=== PATIENT | female | born 1935 | race Caucasian/White ===

== ENCOUNTER 2023-08-13 08:56 | Inpatient (IN) | payer OTHER, SELFPAY ==
[2023-08-13] VITALS (23 sets, daily range): BP systolic 74–160; BP diastolic 54–102; BMI 30.6
[2023-08-13 04:11] LABS: % Basophils 0.4 % (0-2); % Eosinophils 1.1 % (0-6); % Immature Granulocytes 0.2 % (0-0.5); % Monocytes 5.3 % (1.7-9.3); Absolute Eosinophils 0.1 10^3/uL (0-0.7); Absolute Lymphocytes 1.8 10^3/uL (1.2-3.4); Absolute Monocytes 0.5 10^3/uL (0.1-0.6); Absolute Neutrophils 6.9 10^3/uL (1.4-6.5); Mean Corp Hgb Conc. 35.6 g/dL (33.0-37.0); Mean Corpuscular Volume 78.7 fL (81.0-99.0); Mean Platelet Volume 10.5 fL (7.4-10.4); Nucleated Red Blood Cells % 0 %; Platelet Count 276 10^3/uL (130-400); Red Blood Cell Count 5.72 10^6/uL (4.20-5.40); Red Cell Dist. Width 13.2 % (11.5-14.5); White Blood Cell Count 9.4 10^3/uL (4.8-10.8)
--- NOTE | 2023-08-13 04:20 | ED.GENMED ---
History of Present Illness
General
Chief Complaint: Chest Pain
Source: patient and family
Time Seen by Provider: 08/13/23 04:02
Travel History
Have you had any contact with someone who has COVID-19?: No
Do you have any symptoms of coronavirus? Fever > 100 degrees, chills, cough, shortness of breath, sore throat, loss of taste or smell, muscle aches, or headache?: No
History of Present Illness
History of Present Illness:
88-year-old female presents to the emergency room after having chest pain that began at about 2:30 AM. Patient states the pain was severe. She is dizzy. Patient has a extensive cardiac history. Daughter gave the patient a sublingual nitro which
may be did help some. However she does continue to have pain. Patient was recently hospitalized here at [facility] for heart failure.
Past History
Past History
ED Past Medical History: Arrthythmia, CHF and HTN
Social History
Tobacco: Non-smoker
Alcohol: None
Phy Exam
Physical Exam
Physical Exam:
General: Awake, Alert, Oriented X3. Appears mildly uncomfortable
Vitals: Mildly hypertensive
Head: Atraumatic
Eyes: Pupils equal, EOMI
Throat: Airway intact, no exudates
Neck: Trachea midline
Lungs: Clear and equal b/l
Heart: Regular rate, no murmurs
Abd: Soft, Nontender, No pulsatile mass
Neuro: Nonfocal
Skin: Warm, dry, no rash
Extremities: pulses equal b/l, no edema
Scores
Heart Score for Chest Pain Patients
STEMI patient?: No
History: Moderately Suspicious
ECG: Nonspecific Repolarization
Age: >/= 65 years
Risk Factors: >/= 3 Risk Factors or History of CAD
Troponin: >1 - <3 x Normal Limit
Heart Score for Chest Pain Patients: 7
Heart Score Risk: 72.7 % MACE over next 6 weeks
Course
Orders/Labs/Results
Orders:
Orders
08/13/23 03:06
Electrocardiogram (*1) Urgent
Reason for Study: Other
Other Reason for Exam: Respiratory Distress
Cardiac Monitoring- Treatment ONCE
EKG- Treatment ONCE
IV Insert/Care/Rem.- Treatment PRN
CR Chest - 2 Views Urgent
Comment:
Reason For Exam: respiratory distress
O2 Therapy [RESP] Urgent
Titrate/Wean O2 to maintain O2 sat greater than (%): 93
Special Instructions: TO MAINTAIN CONTINUOUS O2 SATS >/= 93%
Pulse Ox/cont/shift [RESP] Urgent
Quantity: 1
Special Instructions: continuous pulse ox
08/13/23 03:42
Complete Blood Count/With Diff Urgent
Comprehensive Metabolic Panel Urgent
NT-proBNP Urgent
Troponin I Urgent
08/13/23 05:33
Acetaminophen [Tylenol] 1,000 mg PO NOW STA
Nitroglycerin Sublingual [Nitrostat (Sublingual)] 0.4 mg SL NOW STA
08/13/23 06:16
Troponin I Urgent
08/13/23 08:40
POTASSIUM PHOSPHATE 1mEq=0.7mM [Potassium Phosphate] 40 meq 0.9% Sodium Chloride 250 ml [Nss] 250 ml IV NOW
08/13/23 08:48
Admit/Transfer Patient As Directed
Co-Sign Provider:
Level of Care: Inpatient admission
Assign to:: IVU
Physician / Group: Marquis Do - hospitalists
Diagnosis: chest pain
Reason for Hospitalization: chest pain, trop trends, cath Tuesday
Expected length of stay greater than two midnights?: Yes
ELOS- Estimated Length of Stay in days: 3
I certify the patient meets the requirements for IP care: Yes
08/13/23 11:27
Sequential Compression Device [Pneumatic Compression Sleeves] As Directed
Type: Knee high
DX Deep Vein Thrombosis Video Routine
Abnormal Lab Results
08/13/23
03:42
RBC 5.72 H 10^6/uL
(4.20-5.40)
MCV 78.7 L fL
(81.0-99.0)
MPV 10.5 H fL
(7.4-10.4)
Absolute Neuts (auto) 6.9 H 10^3/uL
(1.4-6.5)
Lymphocytes % 19.0 L %
(20.5-51.1)
Sodium 134 L mmol/L
(135-145)
Potassium 2.9 L mmol/L
(3.5-5.1)
Chloride 92 L mmol/L
(98-107)
BUN 42 H mg/dl
(7-17)
Creatinine 1.8 H mg/dL
(0.6-1.0)
Glucose 172 H mg/dl
(70-99)
Troponin I 0.035 H* ng/ml
08/13/23 03:42
08/13/23 03:42
Vital Signs
Initial and Last Documented VS:
Initial Vital Signs
Temp Pulse Resp Pulse Ox
98 F 92 28 98
08/13/23 03:09 08/13/23 03:09 08/13/23 03:09 08/13/23 03:09
Last Documented Vital Signs
Temp Pulse Resp BP Pulse Ox
98.1 F 73 16 145/91 98
08/15/23 12:43 08/15/23 13:30 08/15/23 12:43 08/15/23 13:30 08/15/23 12:43
MDM/Problems Addressed
Differential Diagnosis Includes:
acs, a fib, anemia
MDM/Problems Addressed:
Patient presents with chest pain. She presented with A-fib throughout ventricular response. First troponin was very mildly elevated at point 035. Second troponin essentially unchanged at point 033 but certainly not rising. Patient will be
evaluated by cardiology first thing in the morning. Disposition per them
Chronic conditions affecting care: HTN, CAD and Arrhythmia
*Radiology
Radiology exam reviewed: preliminary read by ED provider (Chest x-ray reviewed by me, no significant change)
*Pulse Oximetry
Patient hypoxic: no
*EKG
Interpreted by ED Provider?: Yes
Interpretation: normal
Heart Rate: 92
Rate: normal
Rhythm: atrial flutter
Ischemia: ST depression (Laterally)
*Critical Care Note
Total Time (30-74mins, 75-104mins- exclusive of procedures): Not Applicable
ED Attending Note
-
Portions of this chart may have been created with voice recognition software.� Occasional wrong word or��sound alike� substitutions may have occurred due to the inherent limitations of voice recognition software.
Discharge Plan
Departure
Patient Disposition: Admit
Date of Disposition: 08/13/23
Time of Disposition: 08:28
Presentation/result/management discussed w/ accepting MD/DO: Hospitalist
Discharge Problem:
Elevated troponin
Interventions
Interventions:
*Risk Screen - Suicide Last Done: 08/13/23 14:57
ED- Fall Risk Assessment Last Done: 08/13/23 10:20
*ED COVID-19 Vaccine History Last Done: 08/13/23 14:48
*Nursing Disposition Last Done: 08/13/23 11:38
ED- Cardiac Assessment Last Done: 08/13/23 10:20
Discharge Date and Time
Discharge Date/Time: 08/13/23 11:39
[2023-08-13 04:40] LABS: ALT (SGPT) 20 U/L (0-35); AST (SGOT) 28 U/L (14-36); Alkaline Phosphatase 89 U/L (38-126); Blood Urea Nitrogen 42 mg/dl (7-17); Calcium 9.9 mg/dl (8.4-10.2); Carbon Dioxide 27 mmol/L (22-30); Chloride 92 mmol/L (98-107); Glucose 172 mg/dl (70-99); Potassium 2.9 mmol/L (3.5-5.1); Sodium 134 mmol/L (135-145); Total Bilirubin 0.9 mg/dl (0.2-1.3); Total Protein 6.7 g/dl (6.3-8.2)
[2023-08-13 04:49] LABS: NT-proBNP 2270 pg/ml; Troponin I 0.035 ng/ml
[2023-08-13] MEDS: TYLENOL 1000 MG PO (05:44)
[2023-08-13] MEDS: NITROSTAT (SUBLINGUAL) 0.400000000000000022 MG SL (05:45)
[2023-08-13 06:53] LABS: Troponin I 0.033 ng/ml
--- NOTE | 2023-08-13 07:34 | CON.CAR ---
Addendum entered and electronically signed by Niranjan Mosquera MD 08/13/23 10:52:
Patient seen and examined
Agree with DEVIN Galvez's note and assessment
Agree with DEVIN Galvez's plan
Translation performed by the patient's daughter who is a medical technologist microbiology Norm
She has had ongoing issues with symptomatic atrial fibrillation as well as chest pressure associated with atrial fibrillation. She had a recent round of cardiac testing through Dr. Jolly including echocardiogram with normal ejection fraction
and stress testing without significant ischemia as noted. She has renal insufficiency creatinine 1.8 and we will perform nephrology consultation in preparation for left heart catheterization.
Examination:
Telemetry notes atrial fibrillation and atypical atrial flutter
Heart rates are relatively controlled
Nonfocal neurologically
Alert and oriented 3
Cor is irregularly irregular
Abdomen soft nontender positive bowel sounds
1+ extremity edema
Family Physician:� Dr. Padma Carranza, [place], [place]
[employer] Intermediary: Dr. Jolly, Dr. Kushal Carlos of [facility]� [phone].� She also has multiple cardiologists in [place]
Impression:
Presented back to ER 08/13/2023 with chest pain, SOB.
CORWIN
Hypokalemia
Acute on chronic heart failure, proBNP 2270
Atrial flutter
Abnormal troponin, peaked 0.035
Recent admission at 07/21/2023 - 07/29/2023 with CHF, CORWIN
Recent admission at 07/30/2023 - 08/04/2023 with CHF, CORWIN
Chronic HFpEF
Paroxysmal Atrial fibrillation/flutter
s/p ablation 2021 in [place]
s/p CV 07/29/2023hronic anticoagulation with Eliquis
CKD
Known lung nodule
HTN
HLD
GERD
h/o tubal ligation and cyst removal
Aspirin allergy
Rt hip replacement
Lexiscan nuclear stress test 07/24/2023:�Preliminary report minimal anteroapical reversibility which resolves with proning consistent with soft tissue attenuation, no reversible ischemia.� EF 62%
Echo 12/13/2018: EF 55 to 60%, mild AI, TR, PAP 39 mmHg
Echo 07/22/2023: EF 55-60%, Stage II diastolic dysfunction. Mild MR, mild TR w/ PAP 56 mmHg
Plan:
Patient is an 88-year-old female who is visiting from [place].� She has past medical history significant for heart failure with preserved ejection fraction, paroxysmal atrial fibrillation status post ablation in 2021, recent cardioversion,
anticoagulation on Eliquis, hypertension, hyperlipidemia, type 2 diabetes, GERD, chronic kidney disease, DJD who presents to emergency department 08/13/2023 with acute onset of severe chest pain waking her from sleep.� Patient had 2 recent
hospitalizations at [facility] and was hospitalized from 07/21/2023 to 08/04/2023 with CP, SOB, heart failure exacerbation, CORWIN and symptomatic atrial fibrillation.� She was seen in outpatient cardiology office 08/11/2023 and was found to be
back in atrial fibrillation/flutter.� Plan was to schedule outpatient cardioversion.� However, patient awoke at 2 AM with chest pain and dizziness.� Her daughter gave her a nitroglycerin with minimal improvement however she continued to have pain
and presented back to emergency department.� EKG demonstrated atrial flutter with reasonably controlled ventricular response.� There was ST T wave abnormality in inferior and anterolateral leads.� Troponin 0.035 then trended downward.� Potassium
2.9, creatinine 1.8, proBNP 2270.
-Presents 08/13/2023 with severe chest pain.� EKG showed atypical atrial flutter with ST-T wave abnormality in inferior and anterolateral leads.
-Abnormal troponin, peaked at 0.035.� Patient has had several admissions with similar complaints over the last month.� She did undergo a Lexiscan nuclear stress test 07/24/2023 which showed minimal anteroapical reversibility which improved with
proning.� However given this is her third admission with complaints of chest pain and SOB would recommend patient undergo right and left heart catheterization.� I suspect much of her cardiac symptoms are related to her atrial arrhythmias and
pursuing treatment for her atrial arrhythmias makes the most sense in the near and intermediate term. As she has failed cardioversion on amiodarone we will continue amiodarone for rate control and I suspect she would benefit from a second attempt
at AF ablation which we are happy to perform here. Her prior AF ablation was performed in [place] and we will attempt to obtain those records. This ablation be performed as an outpatient when she is optimized and not as an inpatient currently.
-Hold Eliquis in anticipation of catheterization 08/15/2023. We will switch to heparin over the weekend in anticipation of left heart catheterization if renal function remained stable. We would like to make sure that she has no today to coronary
artery disease before pursuing outpatient arrhythmia ablation. I had a long discussion with the daughter who translated for her mother regarding risk benefits and treatment alternatives with repeat PVI.
-Bridge with heparin while off anticoagulation due to recent cardioversion 07/29/2023 and ongoing atrial flutter
-Of note patient has aspirin allergy with angioedema
-ProBNP elevated at 2270.� However, weight is less then was previously and creatinine 1.8.� Would hold on Lasix given elevated renal function and hypokalemia. Defer to nephrology regarding recommendations in terms of potassium repletion and diuretic
-K+ 2.9 getting repleted w/ oral supplement and K-rider
-Given elevated creatinine and need for cardiac catheterization would consult nephrology
-Follow renal function closely.
-Follow daily weights, I&Os.
-Continue metoprolol. Valsartan stopped during prior admission due to renal insufficiency. No SGLT2 inhibitor due to cost.
-Remains atrial flutter per review of EKG. She is s/p cardioversion 07/29/2023 and was back in atrial flutter at [facility] 08/11/23. Continue rate control for now with Toprol and Amiodarone.
-Consider doubling Amiodarone to 200 mg BID and follow QT closely
-Consider evaluation for outpatient repeat ablation
-Previously on flecainide but this was stopped 07/24/2023 due to HF
-Echo with preserved EF and mild MR 07/22/2023. No need to repeat.
-Continue Amlodipine and Toprol for HTN. PRN hydralazine
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 Visits this area with her daughter 1-2 times a year.�
Original Note:
Consultation
Consultation Request
Date/Time Consultation Requested: 08/13/2023
Date/Time Consultation Performed: 08/13/2023
Requesting Provider: Dr. Hartley
Performing Provider: Diana Galvez PA-C for Dr. Mosquera
Reason for Consultation: Chest pain, atrial fibrillation
Medical History
-
History of Present Illness:
Patient is an 88-year-old female who is visiting from [place]. She has past medical history significant for heart failure with preserved ejection fraction, paroxysmal atrial fibrillation status post ablation in 2021, recent cardioversion,
anticoagulation on Eliquis, hypertension, hyperlipidemia, type 2 diabetes, GERD, chronic kidney disease, DJD who presents to emergency department 08/13/2023 with acute onset of severe chest pain waking her from sleep. Patient had 2 recent
hospitalizations at [facility] and was hospitalized from 07/21/2023 to 08/04/2023 with heart failure exacerbation, CORWIN and symptomatic atrial fibrillation. She was seen in outpatient cardiology office 08/11/2023 and was found to be back in
atrial fibrillation/flutter. Plan was to schedule outpatient cardioversion. However, patient awoke at 2 AM with chest pain and dizziness. Her daughter gave her a nitroglycerin with minimal improvement however she continued to have pain and
presented back to emergency department. EKG demonstrated atrial flutter with reasonably controlled ventricular response. There was ST T wave abnormality in inferior and anterolateral leads. Troponin 0.035 then trended downward. Potassium 2.9,
creatinine 1.8, proBNP 2270.
Past medical history:
Chronic HFpEF
Paroxysmal Atrial fibrillation/flutter
s/p ablation 2021 in [place]
s/p CV 07/29/2023
Chronic anticoagulation with Eliquis
CKD
Known lung nodule
HTN
HLD
GERD
h/o tubal ligation and cyst removal
Aspirin allergy
Rt hip replacement
Past Medical History
Past Medical History: Other (See HPI)
Past Surgical History: Appendectomy, Cardiac (Cardioversions, atrial fibrillation in [facility] in 2021), Orthopedic (Right hip replacement) and Other (Tubal ligation, eye surgery)
Social History
Tobacco: Non-Smoker
Alcohol: None
Drug: None
Personal:
Living: With Family (Lives in [place] but spends time in this area with her daughter and also in [facility] with her son)
Family History
Family History: CAD and Diabetes
Allergies / Home Medications
Allergy/AdvReac Type Severity Reaction Status Date / Time
aspirin Allergy Swelling Verified 08/13/23 03:09
Medication Instructions Recorded Confirmed Type
omeprazole 40 mg capsule,delayed 40 mg PO DAILY Gastrointestinal 12/12/18 08/13/23 History
release Issue
Glucosamine 1 tab PO DAILY Supplement 07/21/23 08/13/23 History
multivitamin 1 tab PO DAILY Supplement 07/21/23 08/13/23 History
zinc 1 tab PO DAILY Supplement 07/21/23 08/13/23 History
amiodarone 200 mg tablet (Pacerone) 200 mg PO DAILY #30 tabs 07/29/23 08/13/23 Rx
acetaminophen 500 mg tablet 500 mg PO TIDPRN PRN mild pain 07/30/23 08/13/23 History
(Tylenol Extra Strength)
diclofenac sodium 1 applic topical BIDPRN PRN 07/30/23 08/13/23 History
arthritis
ketotifen fumarate 0.025 % (0.035 1 drp BOTH EYES DAILYPRN PRN itchy 07/30/23 08/13/23 History
%) eye drops eyes
amlodipine 10 mg tablet 10 mg PO DAILY #30 tabs 08/05/23 08/13/23 Rx
apixaban 2.5 mg tablet (Eliquis) 2.5 mg PO BID #60 tabs 08/05/23 08/13/23 Rx
furosemide 20 mg tablet (Lasix) 20 mg PO DAILY Fluid 08/05/23 08/13/23 Rx
Retention/Swelling #30 tabs
metoprolol succinate 25 mg 25 mg PO DAILY Blood Pressure #30 08/05/23 08/13/23 Rx
tablet,extended release 24 hr tabs
nitroglycerin 0.4 mg sublingual 0.4 mg sublingual [id number] PRN 08/05/23 08/13/23 Rx
tablet chest pain #30 tabs
simvastatin 20 mg tablet 20 mg PO QPM High Cholesterol #30 08/05/23 08/13/23 Rx
tabs
Review of Systems
-
History Source: Patient and Family
All other systems: Negative unless noted
Physical Exam
Vital Signs
Temp Pulse Resp BP Pulse Ox
98 F 78 15 142/91 97
08/13/23 03:09 08/13/23 06:45 08/13/23 06:45 08/13/23 06:30 08/13/23 06:45
GEN: No distress, awake, Ox3
HEENT: supple, anicteric, mmm
LUNGS: CTA, no wheezes/rales
CV: Reg, S1/S2, no murmur, rub or gallop
ABD: soft, BS+, NT/ND
EXT: No edema, clubbing or cyanosis
NEURO: Gross non-focal
SKIN: No rash, warm, dry, pink
Lab Results
08/13/23 03:42
08/13/23 03:42
Troponin I 0.033 ng/ml 08/13/23 06:16
[id number] Pept 2270 pg/ml 08/13/23 03:42
Impression / Plan
-
Family Physician:� Dr. Padma Carranza [place], [place]
[employer] Intermediary: Dr. Jolly, Dr. Kushal Carlos of [facility]� [phone].� She also has multiple cardiologists in [place]
Impression:
Presented back to ER 08/13/2023 with chest pain, SOB.
CORWIN
Hypokalemia
Acute on chronic heart failure, proBNP 2270
Atrial flutter
Abnormal troponin, peaked 0.035
Recent admission at 07/21/2023 - 07/29/2023 with CHF, CORWIN
Recent admission at 07/30/2023 - 08/04/2023 with CHF, CORWIN
Chronic HFpEF
Paroxysmal Atrial fibrillation/flutter
s/p ablation 2021 in [place]
s/p CV 07/29/2023
Chronic anticoagulation with Eliquis
CKD
Known lung nodule
HTN
HLD
GERD
h/o tubal ligation and cyst removal
Aspirin allergy
Rt hip replacement
Lexiscan nuclear stress test 07/24/2023:�Preliminary report minimal anteroapical reversibility which resolves with proning consistent with soft tissue attenuation, no reversible ischemia.� EF 62%
Echo 12/13/2018: EF 55 to 60%, mild AI, TR, PAP 39 mmHg
Echo 07/22/2023: EF 55-60%, Stage II diastolic dysfunction. Mild MR, mild TR w/ PAP 56 mmHg
Plan:
Patient is an 88-year-old female who is visiting from [place]. She has past medical history significant for heart failure with preserved ejection fraction, paroxysmal atrial fibrillation status post ablation in 2021, recent cardioversion,
anticoagulation on Eliquis, hypertension, hyperlipidemia, type 2 diabetes, GERD, chronic kidney disease, DJD who presents to emergency department 08/13/2023 with acute onset of severe chest pain waking her from sleep. Patient had 2 recent
hospitalizations at [facility] and was hospitalized from 07/21/2023 to 08/04/2023 with CP, SOB, heart failure exacerbation, CORWIN and symptomatic atrial fibrillation. She was seen in outpatient cardiology office 08/11/2023 and was found to be
back in atrial fibrillation/flutter. Plan was to schedule outpatient cardioversion. However, patient awoke at 2 AM with chest pain and dizziness. Her daughter gave her a nitroglycerin with minimal improvement however she continued to have pain
and presented back to emergency department. EKG demonstrated atrial flutter with reasonably controlled ventricular response. There was ST T wave abnormality in inferior and anterolateral leads. Troponin 0.035 then trended downward. Potassium
2.9, creatinine 1.8, proBNP 2270.
-Presents 08/13/2023 with severe chest pain. EKG showed atrial flutter with ST-T wave abnormality in inferior and anterolateral leads.
-Abnormal troponin, peaked at 0.035. Patient has had several admissions with similar complaints over the last month. She did undergo a Lexiscan nuclear stress test 07/24/2023 which showed minimal anteroapical reversibility which improved with
proning. However given this is her third admission with complaints of chest pain and SOB would recommend patient undergo right and left heart catheterization.
-Hold Eliquis in anticipation of catheterization 08/15/2023
-Bridge with heparin while off anticoagulation due to recent cardioversion 07/29/2023 and ongoing atrial flutter
-Of note patient has aspirin allergy with angioedema
-ProBNP elevated at 2270. However, weight is less then was previously and creatinine 1.8. Would hold on Lasix given elevated renal function and hypokalemia.
-K+ 2.9 getting repleted w/ oral supplement and K-rider
-Given elevated creatinine and need for cardiac catheterization would consult nephrology
-Follow renal function closely.
-Follow daily weights, I&Os.
-Continue metoprolol. Valsartan stopped during prior admission due to renal insufficiency. No SGLT2 inhibitor due to cost.
-Remains atrial flutter per review of EKG. She is s/p cardioversion 07/29/2023 and was back in atrial flutter at OV 08/11/23. Continue rate control for now with Toprol and Amiodarone.
-Consider doubling Amiodarone to 200 mg BID and follow QT closely
-Consider evaluation for outpatient repeat ablation
-Previously on flecainide but this was stopped 07/24/2023 due to HF
-Echo with preserved EF and mild MR 07/22/2023. No need to repeat.
-Continue Amlodipine and Toprol for HTN. PRN hydralazine
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 Visits this area with her daughter 1-2 times a year.�
Data Reviewed
-
EKG: Report Reviewed by me, Discussed with Physician, Discussed with Patient and Discussed with Family
Labs: Labs Reviewed by me, Discussed with Physician, Discussed with Patient and Discussed with Family
Old Records: Reviewed
[2023-08-13] MEDS: POTASSIUM PHOSPHATE 259.090899999999976 MEQ IV (10:02)
--- NOTE | 2023-08-13 10:35 | HPS.HSE ---
Family Physician
-
Family Physician: NOT KNOW UNKNOWN - PT DOES
Chief Complaint
-
chest pain
History of Present Illness
88 y/o F visiting from [place]. PMH of HFpEF, Parox AFib hx of ablation with recent DCCV, on Eliquis, HTN, HLD, Type 2 DM, CKD presents to ER for acute chest pain waking her up. She reports chest pain is severe and centrally related. She was
lightheaded. Her daughter gave her nitro with minimal relief and patient was brought to ER. No radiation. No SOB, no fever/chills. No GI complaints. Recent hospitalizations last month for CHF, CORWIN and Afib
Medical History
Past Medical History
Past Medical History: Reports Other (Chronic HFpEF Paroxysmal Atrial fibrillation/flutter s/p ablation 2021 in [place] s/p CV 07/29/2023 Chronic anticoagulation with Eliquis CKD Known lung nodule HTN HLD GERD h/o tubal ligation and cyst removal Aspirin
allergy Rt hip replacement)
Past Surgical History: Reports Other (Appendectomy, Cardiac (Cardioversions, atrial fibrillation in [facility] in 2021), Orthopedic (Right hip replacement) and Other (Tubal ligation, eye surgery))
Social History
Tobacco: Non-smoker
Alcohol: None
Drug: None
Personal:
Living: With Family
Family History
Family History: Not pertinent
Allergies / Home Medications
Allergies reflects when Allergies were last updated in [facility].
Home Medications with original date entered in [facility]
Allergy/Medication List:
Allergies
Allergy/AdvReac Type Severity Reaction Status Date / Time
aspirin Allergy Swelling Verified 08/13/23 03:09
Home Medications
omeprazole 40 mg capsule,delayed release 40 mg PO DAILY Gastrointestinal Issue 12/12/18
Glucosamine 1 tab PO DAILY Supplement 07/21/23
multivitamin 1 tab PO DAILY Supplement 07/21/23
zinc 1 tab PO DAILY Supplement 07/21/23
amiodarone 200 mg tablet (Pacerone) 200 mg PO DAILY #30 tabs 07/29/23
acetaminophen 500 mg tablet (Tylenol Extra Strength) 500 mg PO TIDPRN PRN mild pain 07/30/23
diclofenac sodium 1 applic topical BIDPRN PRN arthritis 07/30/23
ketotifen fumarate 0.025 % (0.035 %) eye drops 1 drp BOTH EYES DAILYPRN PRN itchy eyes 07/30/23
amlodipine 10 mg tablet 10 mg PO DAILY #30 tabs 08/05/23
apixaban 2.5 mg tablet (Eliquis) 2.5 mg PO BID #60 tabs 08/05/23
furosemide 20 mg tablet (Lasix) 20 mg PO DAILY Fluid Retention/Swelling #30 tabs 08/05/23
metoprolol succinate 25 mg tablet,extended release 24 hr 25 mg PO DAILY Blood Pressure #30 tabs 08/05/23
nitroglycerin 0.4 mg sublingual tablet 0.4 mg sublingual [id number] PRN chest pain #30 tabs 08/05/23
simvastatin 20 mg tablet 20 mg PO QPM High Cholesterol #30 tabs 08/05/23
Review of Systems
-
A 12 point ROS was completed and negative except as noted: Yes
Physical Exam
Vital Signs
Vital Signs
Temp Pulse Resp BP Pulse Ox
98 F 76 23 139/93 96
08/13/23 03:09 08/13/23 10:30 08/13/23 10:30 08/13/23 10:00 08/13/23 10:30
Physical Exam
General: Well Developed and Well Nourished
HEENT: NormoCephalic and Anicteric
Respiratory: No Wheezes or Rales
Cardiac: S1/S2 and Regular Rhythm
GI: Soft
Neuro: AO x 3
Psych: Calm
Laboratory Results
-
08/13/23 03:42
08/13/23 03:42
Laboratory Results
Total Bilirubin 0.9 mg/dl (0.2-1.3) 08/13/23 03:42
AST 28 U/L (14-36) 08/13/23 03:42
ALT 20 U/L (0-35) 08/13/23 03:42
Alkaline Phosphatase 89 U/L (38-126) 08/13/23 03:42
Troponin I 0.033 ng/ml 08/13/23 06:16
Data Reviewed
-
Lab Data: Labs Reviewed by me, Discussed with Patient and Discussed with Family
Impression/Plan
-
Assessment:
Acute chest pain, likely anginal
Troponin elevation, unclear if non-OK vs related to acute CHF vs ischemic origin
- EKG showed atrial flutter with ST-T wave abnormality in inferior and anterolateral leads.
- minimal improvement with Nitro
- IVU admit
- DCA cards consulted
- recent Lexiscan nuclear stress test 07/24/2023 showed minimal anteroapical reversibility which improved with proning
- for RHC/LHC Tuesday
- continue BB
- noted ASA allergy
CKD stage 3b
- Renal consult for pre-cath optimization
Hypokalemia
- replete K+ in ER
- follow BMP
Acute on chronic heart failure, proBNP 2270
- hold Lasix for now
- Follow daily weights, I&Os.
Paroxysmal Atrial fibrillation/flutter
- s/p ablation and recent Cardioversion
- continue BB/Amiodarone
- hold Eliquis for cath; bridge with IV Heparin - requires intensive monitoring of PTT levels
Known lung nodule
- OP follow up
Essential HTN
- Norvasc
HLD
- statin
GERD
- PPI
DVT ppx: Eliquis
Code: Full
[2023-08-13 11:08] LABS: APTT 29.3 Sec (23.4-35.0)
--- NOTE | 2023-08-13 12:38 | CON.MD ---
Consultation - Medical
-
Assessment:
chronic HFpEF
Afib
CKD4
HTN
osteoporosis
s/p hip replacement
T2DM
hypokalemia
Plan:
-replete K
-check Mag
-hold lasix for now
-so long as Cr <= 1.8 can do cath with bicarb IVF
-d/w family possibility of contrast nephropathy, though benefits of cath outweigh the risk
-[id number]
[2023-08-13] MEDS: TOPROL XL 25 MG PO (13:22)
[2023-08-13] MEDS: KCL 40 MEQ PO (13:25)
[2023-08-13] MEDS: PACERONE 200 MG PO (13:25)
[2023-08-13] MEDS: HEPARIN 25000 UNITS/250 ML IV (13:26)
[2023-08-13] MEDS: LIPITOR 10 MG PO (17:56)
[2023-08-13 19:44] LABS: APTT 59.8 Sec (23.4-35.0)
--- NOTE | 2023-08-13 19:49 | PTCARENOTE ---
Received pt from ED via stretcher. Pt's daughter translating for pt as pt only speaks Latvian. All nursing measures and plan of care discussed w/ pt's daughter.
[2023-08-13 20:02] LABS: Blood Urea Nitrogen 40 mg/dl (7-17); Calcium 9.5 mg/dl (8.4-10.2); Carbon Dioxide 28 mmol/L (22-30); Chloride 94 mmol/L (98-107); Estimated Creatinine Clearance 21 ml/min; Glucose 175 mg/dl (70-99); Sodium 133 mmol/L (135-145)
--- NOTE | 2023-08-14 00:11 | PTCARENOTE ---
Potassium from 1900 BMP resulted 4.0; PTT subtherapeutic, heparin titrated up to 1100 units/hr per protocol. Pt. remains in A-fib/flutter, VSS, no complaints of chest pain. Pt. ambulatory with RW and assist x 1. Daughter staying overnight,
assists with translating as pt.'s Yakut is very limited. Pt. currently sleeping.
[2023-08-14 02:28] VITALS: BP 138/86
[2023-08-14 02:35] LABS: Hematocrit 43.1 % (37.0-47.0); Hemoglobin 15.3 g/dL (12.0-16.0); Mean Corp Hgb Conc. 35.5 g/dL (33.0-37.0); Mean Corpuscular Hgb 27.8 pg (27.0-31.0); Mean Corpuscular Volume 78.4 fL (81.0-99.0); Mean Platelet Volume 10.5 fL (7.4-10.4); Platelet Count 245 10^3/uL (130-400); Red Cell Dist. Width 13.2 % (11.5-14.5)
[2023-08-14 02:37] VITALS: BMI 30.6
[2023-08-14 02:57] LABS: APTT 152.4 Sec (23.4-35.0)
[2023-08-14 03:04] LABS: Blood Urea Nitrogen 44 mg/dl (7-17); Calcium 9.6 mg/dl (8.4-10.2); Carbon Dioxide 29 mmol/L (22-30); Chloride 95 mmol/L (98-107); Estimated Creatinine Clearance 23 ml/min; Glucose 142 mg/dl (70-99); Potassium 3.3 mmol/L (3.5-5.1); Sodium 135 mmol/L (135-145); eGFR 29.02
[2023-08-14] MEDS: KCL 40 MEQ PO ×2 (06:39→09:12)
[2023-08-14 07:47] VITALS: BP 154/97
[2023-08-14] MEDS: TOPROL XL 25 MG PO (08:13)
[2023-08-14] MEDS: NORVASC 10 MG PO (08:13)
[2023-08-14] MEDS: PROTONIX 40 MG PO (08:13)
[2023-08-14] MEDS: PACERONE 200 MG PO (08:14)
--- NOTE | 2023-08-14 09:07 | W.PN.CARDCBS ---
Today's Communication / Plan
-
Bicarbonate fluid as per nephrology
Holding Lasix
Heparin until 4 AM on Tuesday
Rate control
Eventual resumption of oral anticoagulation
Outpatient evaluation for ablation
Management as per left and right heart catheterization on Tuesday the
Impression / Plan
-
Family Physician:� Dr. Padma Carranza, [place], [place]
Scrap Drop Operator: Dr. Jolly, Dr. Kushal Carlos of [facility]� [phone].� She also has multiple cardiologists in [place]
Impression:
Presented back to ER 08/13/2023 with chest pain, SOB.
CORWIN
Hypokalemia
Acute on chronic heart failure, proBNP 2270
Atrial flutter
Abnormal troponin, peaked 0.035
Recent admission at 07/21/2023 - 07/29/2023 with CHF, CORWIN
Recent admission at 07/30/2023 - 08/04/2023 with CHF, CORWIN
Chronic HFpEF
Paroxysmal Atrial fibrillation/flutter
s/p ablation 2021 in [place]
s/p CV 07/29/2023
Chronic anticoagulation with Eliquis
CKD
Known lung nodule
HTN
HLD
GERD
h/o tubal ligation and cyst removal
Aspirin allergy
Rt hip replacement
Lexiscan nuclear stress test 07/24/2023:�Preliminary report minimal anteroapical reversibility which resolves with proning consistent with soft tissue attenuation, no reversible ischemia.� EF 62%
Echo 12/13/2018: EF 55 to 60%, mild AI, TR, PAP 39 mmHg
Echo 07/22/2023: EF 55-60%, Stage II diastolic dysfunction. Mild MR, mild TR w/ PAP 56 mmHg
Plan:
Patient is an 88-year-old female who is visiting from [place]. She has past medical history significant for heart failure with preserved ejection fraction, paroxysmal atrial fibrillation status post ablation in 2021, recent cardioversion,
anticoagulation on Eliquis, hypertension, hyperlipidemia, type 2 diabetes, GERD, chronic kidney disease, DJD who presents to emergency department 08/13/2023 with acute onset of severe chest pain waking her from sleep. Patient had 2 recent
hospitalizations at [facility] and was hospitalized from 07/21/2023 to 08/04/2023 with CP, SOB, heart failure exacerbation, CORWIN and symptomatic atrial fibrillation. She was seen in outpatient cardiology office 08/11/2023 and was found to be
back in atrial fibrillation/flutter. Plan was to schedule outpatient cardioversion. However, patient awoke at 2 AM with chest pain and dizziness. Her daughter gave her a nitroglycerin with minimal improvement however she continued to have pain
and presented back to emergency department. EKG demonstrated atrial flutter with reasonably controlled ventricular response. There was ST T wave abnormality in inferior and anterolateral leads. Troponin 0.035 then trended downward. Potassium
2.9, creatinine 1.8, proBNP 2270.
-Presents 08/13/2023 with severe chest pain. EKG showed atrial flutter with ST-T wave abnormality in inferior and anterolateral leads.
-Abnormal troponin, peaked at 0.035. Patient has had several admissions with similar complaints over the last month. She did undergo a Lexiscan nuclear stress test 07/24/2023 which showed minimal anteroapical reversibility which improved with
proning. However given this is her third admission with complaints of chest pain and SOB would recommend patient undergo right and left heart catheterization. She is n.p.o. after midnight for left and right heart catheterization on Tuesday,
August 15 and I stopped her heparin drip at 4 AM on Tuesday in anticipation of procedure. Appreciate nephrology input with bicarbonate fluid and her creatinine is stable.
-Hold Eliquis in anticipation of catheterization 08/15/2023
-Bridge with heparin while off anticoagulation due to recent cardioversion 07/29/2023 and ongoing atrial flutter
-Of note patient has aspirin allergy with angioedema
-ProBNP elevated at 2270. However, weight is less then was previously and creatinine 1.8. Would hold on Lasix given elevated renal function and hypokalemia.
-K+ 2.9 getting repleted w/ oral supplement and K-rider. Appreciate nephrology input
-Follow renal function closely.
-Follow daily weights, I&Os.
-Continue metoprolol. Valsartan stopped during prior admission due to renal insufficiency. No SGLT2 inhibitor due to cost.
-Remains atrial flutter per review of EKG. She is s/p cardioversion 07/29/2023 and was back in atrial flutter at [facility] 08/11/23. Continue rate control for now with Toprol and Amiodarone.
-Consider doubling Amiodarone to 200 mg BID and follow QT closely
-Consider evaluation for outpatient repeat ablation. Her daughter Norm tells me that her mother currently has no insurance so we will we will need to investigate with the hospital means by which they may pay for her cardiac ablation. For now she
is stable and we will workup coronary artery disease and pursue rate control in anticipation of her pursuing obtaining insurance or perhaps working out something through the hospital to perform the procedure at a reduced payment.
-Previously on flecainide but this was stopped 07/24/2023 due to HF
-Echo with preserved EF and mild MR 07/22/2023. No need to repeat.
-Continue Amlodipine and Toprol for HTN. PRN hydralazine
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 Visits this area with her daughter 1-2 times a year.� In [place] they have the ability to place a pacemaker but cannot perform cardiac ablation
Progress Note - Scrap Drop Operator
Subjective
Date of Service: August 14, 2023
Breathing better today
Objective
Labs:
08/14/23 02:27
08/14/23 02:
Labs
Hgb 15.3 g/dL (12.0-16.0) 08/14/23 02:27
Hct 43.1 % (37.0-47.0) 08/14/23 02:27
Plt Count 245 10^3/uL (130-400) 08/14/23 02:27
APTT 152.4 Sec (23.4-35.0) H* 08/14/23 02:27
Sodium 135 mmol/L (135-145) 08/14/23 02:27
Potassium 3.3 mmol/L (3.5-5.1) L 08/14/23 02:27
BUN 44 mg/dl (7-17) H 08/14/23 02:27
Creatinine 1.7 mg/dL (0.6-1.0) H 08/14/23 02:27
Glucose 142 mg/dl (70-99) H 08/14/23 02:27
Troponins
08/13/23 08/13/23
03:42 06:16
Troponin I 0.035 H* 0.033
Vital Signs and I&O:
Vital Signs
Temp Pulse Resp BP Pulse Ox
98.5 F 94 18 154/97 95
08/14/23 02:38 08/14/23 08:13 08/14/23 02:38 08/14/23 08:13 08/14/23 02:38
Vital Signs
Temp Pulse Resp BP Pulse Ox
98.5 F 94 18 154/97 95
08/14/23 02:38 08/14/23 08:13 08/14/23 02:38 08/14/23 08:13 08/14/23 02:38
Intake & Output
08/12/23 08/13/23 08/14/23 08/15/23
06:59 06:59 06:59 06:59
Intake Total 913 / 913
Balance 913 / 913
Physical Exam
Physical Exam
HEENT normocephalic atraumatic
JVP 6
Cor regular no murmur
Lungs clear to auscultation bilaterally
Abdomen soft nontender positive bowel sounds no extreme edema
Pertinent x 3
Nonfocal neurologically
--- NOTE | 2023-08-14 10:02 | PTCARENOTE ---
Pt speaks Croatian. Pt's daughter at bedside. Reviewed all nursing measures w/ pt's daughter who then translates to her mother.
[2023-08-14 11:13] LABS: APTT 123.9 Sec (23.4-35.0)
--- NOTE | 2023-08-14 11:18 | W.PN.NEPH.PH ---
Today's Communication / Plan
-
K
Assessment/Plan
-
Assessment:
chronic HFpEF
Afib
CKD4
HTN
osteoporosis
s/p hip replacement
T2DM
hypokalemia
Plan:
-replete K
-check Mag
-hold lasix for now
-so long as Cr <= 1.8 can do cath with bicarb IVF
-follow K
-
-
Date of Service: August 14, 2023
CC / HPI / ROS
-
Chief Complaint:
CORWIN/CKD
History of Present Illness:
CKD/Cr stable 1.7
K low 3.3
BP stable
Review of Systems:
no CP/SOB
Labs
-
Labs:
WBC 10.0 10^3/uL (4.8-10.8) 08/14/23 02:27
RBC 5.50 10^6/uL (4.20-5.40) H 08/14/23 02:27
Hgb 15.3 g/dL (12.0-16.0) 08/14/23 02:27
Hct 43.1 % (37.0-47.0) 08/14/23 02:27
Plt Count 245 10^3/uL (130-400) 08/14/23 02:27
Sodium 135 mmol/L (135-145) 08/14/23 02:27
Potassium 3.3 mmol/L (3.5-5.1) L 08/14/23 02:27
Chloride 95 mmol/L (98-107) L 08/14/23 02:27
Carbon Dioxide 29 mmol/L (22-30) 08/14/23 02:27
BUN 44 mg/dl (7-17) H 08/14/23 02:27
Creatinine 1.7 mg/dL (0.6-1.0) H 08/14/23 02:27
eGFR 29.02 08/14/23 02:27
Glucose 142 mg/dl (70-99) H 08/14/23 02:27
Calcium 9.6 mg/dl (8.4-10.2) 08/14/23 02:27
Npg-[id number]-Kboewfjybds Pept 2270 pg/ml 08/13/23 03:42
Albumin 4.0 g/dl (3.5-5.0) 08/13/23 03:42
Physical Exam
-
Vital Signs:
Vital Signs
Temp Pulse Resp BP Pulse Ox
97.9 F 94 18 154/97 96
08/14/23 07:45 08/14/23 08:13 08/14/23 07:45 08/14/23 08:13 08/14/23 07:45
Cardiovascular:: Regular rate and rhythm
Respiratory:: Bilateral: Coarse
Lung Excursion:: Normal
Abdomen:: Nontender and Soft
Bowel Sounds:: Normal
Extremity Edema:: None: Bilateral:
[2023-08-14 11:48] VITALS: BP 137/88
--- NOTE | 2023-08-14 12:24 | W.PN.HOSP.TC ---
Today's Communication/Plan
-
NPO p MN for cath
Assessment / Plan
Assessment / Plan
Assessment:
Acute chest pain, likely anginal
Troponin elevation, unclear if non-AZ vs related to acute CHF vs ischemic origin
- EKG showed atrial flutter with ST-T wave abnormality in inferior and anterolateral leads.
- minimal improvement with Nitro
- DCA cards following
- recent Lexiscan nuclear stress test 07/24/2023 showed minimal anteroapical reversibility which improved with proning
- for RHC/LHC Tuesday
- IV heparin - requires intensive monitoring of PTT
- continue BB
- noted ASA allergy
CKD stage 3b
- Renal consulted; pre-cath bicarb prophylaxis ordered
Hypokalemia
- replete K+
- follow BMP, Mag
Acute on chronic heart failure, proBNP 2270
- hold Lasix for now
- Follow daily weights, I&Os.
Paroxysmal Atrial fibrillation/flutter
- s/p ablation and recent Cardioversion
- continue BB/Amiodarone
- hold Eliquis for cath; bridge with IV Heparin - requires intensive monitoring of PTT levels
Known lung nodule
- OP follow up
Essential HTN
- Norvasc
HLD
- statin
GERD
- PPI
DVT ppx: IV Heparin
Code: Full
Anticipated Discharge: > 48 hours
Subjective/Interval History
-
Date of Service: August 14, 2023
no chest pain
K low and repletion given
Objective Data
-
Labs:
Laboratory Results
08/14/23 08/14/23 08/14/23
02:27 10:50 16:00
WBC 10.0
Hgb 15.3
Hct 43.1
Plt Count 245
APTT 152.4 H* 123.9 H
Sodium 135 Pending
Potassium 3.3 L Pending
Chloride 95 L Pending
Carbon Dioxide 29 Pending
BUN 44 H Pending
Creatinine 1.7 H Pending
Glucose 142 H Pending
Calcium 9.6 Pending
Vital Signs:
Vital Signs
Temp Pulse Resp BP Pulse Ox
97.8 F 94 20 154/97 91
08/14/23 11:52 08/14/23 08:13 08/14/23 11:52 08/14/23 08:13 08/14/23 11:52
I&O
08/13/23 08/14/23 08/15/23
06:59 06:59 06:59
Intake Total 913 / 913
Balance 913 / 913
Physical Exam
-
General: No Apparent Distress
HEENT: Normocephalic and Atraumatic
Respiratory: Negative Wheezes or Rales
Cardiac: Regular Rhythm and S1/S2
GI: Soft and Nontender
Musculoskeletal: No Edema
Neuro: AO x 3
Hematologic / Lymphatic: No Lymphadenopathy
Psych: Calm
Data Reviewed
-
Total Time Spent with Patient (in minutes): 51
Labs: Labs Reviewed by me
[2023-08-14] MEDS: LIDOCAINE 4% PATCH 1 PATCH TOPICAL (16:14)
[2023-08-14] MEDS: HEPARIN 25000 UNITS/250 ML IV (16:18)
[2023-08-14 16:46] VITALS: BP 141/79
[2023-08-14] MEDS: LIPITOR 10 MG PO (18:19)
[2023-08-14 19:03] VITALS: BP 150/88
[2023-08-14 19:06] LABS: APTT 78.8 Sec (23.4-35.0)
[2023-08-14 19:11] LABS: Blood Urea Nitrogen 38 mg/dl (7-17); Calcium 9.7 mg/dl (8.4-10.2); Carbon Dioxide 30 mmol/L (22-30); Chloride 101 mmol/L (98-107); Estimated Creatinine Clearance 23 ml/min; Glucose 123 mg/dl (70-99); Magnesium 2.4 mg/dl (1.6-2.3); Potassium 5.8 mmol/L (3.5-5.1); Sodium 135 mmol/L (135-145); eGFR 29.02
[2023-08-14 22:33] VITALS: BP 139/82
[2023-08-15] VITALS (9 sets, daily range): BP systolic 131–162; BP diastolic 75–100; BMI 30.8
--- NOTE | 2023-08-15 00:34 | PTCARENOTE ---
Received pt at handoff. Tele- Afib. Assessment noted as documented. VSS. Ambulating to bathroom via rolling walker and assist x1 w/ steady gait. No c/o dizziness/pain/sob. Heparin gtt infusing at 800 units/hr. Son at bedside. Aware of NPO status
after midnight. Currently resting in bed; call marshal w/in reach.
[2023-08-15 00:45] LABS: Blood Urea Nitrogen 39 mg/dl (7-17); Calcium 9.8 mg/dl (8.4-10.2); Carbon Dioxide 22 mmol/L (22-30); Chloride 100 mmol/L (98-107); Estimated Creatinine Clearance 23 ml/min; Glucose 155 mg/dl (70-99); Potassium 4.8 mmol/L (3.5-5.1); Sodium 134 mmol/L (135-145); eGFR 29.02
[2023-08-15 04:32] LABS: Hematocrit 43.3 % (37.0-47.0); Hemoglobin 15.1 g/dL (12.0-16.0); Mean Corp Hgb Conc. 34.9 g/dL (33.0-37.0); Mean Corpuscular Volume 80.2 fL (81.0-99.0); Mean Platelet Volume 10.3 fL (7.4-10.4); Platelet Count 254 10^3/uL (130-400); Red Cell Dist. Width 13.4 % (11.5-14.5); White Blood Cell Count 11.4 10^3/uL (4.8-10.8)
[2023-08-15 04:49] LABS: APTT 69.2 Sec (23.4-35.0)
[2023-08-15 05:10] LABS: Blood Urea Nitrogen 38 mg/dl (7-17); Calcium 9.8 mg/dl (8.4-10.2); Carbon Dioxide 25 mmol/L (22-30); Chloride 100 mmol/L (98-107); Estimated Creatinine Clearance 23 ml/min; Glucose 136 mg/dl (70-99); Potassium 4.2 mmol/L (3.5-5.1); Sodium 134 mmol/L (135-145); eGFR 29.02
--- NOTE | 2023-08-15 07:43 | W.PN.HOSP.TC ---
Addendum entered and electronically signed by Tye Martínez DO 08/15/23 16:12:
Cardiac cath was clean, no significant CAD per cardiology. Okay to resume Jeremiah scott per cardiology.
I spoke with cardiology team, they recommend discharge home today.
Plan for outpatient ablation after insurance issues worked out. Currently patient lacks insurance.
Original Note:
Today's Communication/Plan
-
Await catheterization
Assessment / Plan
Assessment / Plan
Gen-AAOx3, NAD, obese
HEENT-NC, AT, anicteric, clear oral mm
Neck-supple
CV-reg, no M, +S1/S2
Lungs-clear B/L
Abd-soft, NT, ND
Ext-no edema
Musculoskeletal-no cyanosis, clubbing
Skin-warm and dry
Neuro-grossly non-focal
Psych-calm, cooperative
Acute chest pain, likely anginal
Troponin elevation, unclear if non-PA vs related to acute CHF vs ischemic origin
- EKG showed atrial flutter with ST-T wave abnormality in inferior and anterolateral leads.
- minimal improvement with Nitro
- DCA cards following
- recent Lexiscan nuclear stress test 07/24/2023 showed minimal anteroapical reversibility which improved with proning
- for RHC/LHC today
- IV heparin on hold for catheterization
- continue BB
- noted ASA allergy
CKD stage 3b -creatinine stable, 1.7.
- Renal consulted; pre-cath bicarb prophylaxis ordered
Hypokalemia -resolved. Hyperkalemia resolved. Potassium 4.2 today.
Acute on chronic heart failure with preserved EF - proBNP 2270. Last echo was from 07/22/2023.
- hold Lasix for now
- Follow daily weights, I&Os.
Paroxysmal Atrial fibrillation/flutter
- s/p ablation and recent Cardioversion
- continue BB/Amiodarone
- hold Eliquis for cath; bridge with IV Heparin
Right upper lobe pulmonary nodule -noted on recent CTA from 07/21/2023, 18 mm. Will need outpatient follow-up.
Essential HTN
- Norvasc
HLD
- statin
GERD
- PPI
Obesity due to excess calories
DVT ppx: IV Heparin
Code: Full
Anticipated Discharge: Within 24 hours
Subjective/Interval History
-
Date of Service: August 15, 2023
Patient seen and examined. Denies chest pain. Family at the bedside. No complaints.
Objective Data
-
Labs:
Laboratory Results
08/15/23 08/15/23 08/15/23
00:20 01:15 04:10
WBC 11.4 H
Hgb 15.1
Hct 43.3
Plt Count 254
APTT 81.0 H Cancelled 69.2 H
Sodium 134 L 134 L
Potassium 4.8 4.2
Chloride 100 100
Carbon Dioxide 22 25
BUN 39 H 38 H
Creatinine 1.7 H 1.7 H
Glucose 155 H 136 H
Calcium 9.8 9.8
Vital Signs:
Vital Signs
Temp Pulse Resp BP Pulse Ox
97.9 F 96 16 146/100 98
08/15/23 03:57 08/15/23 04:13 08/15/23 03:57 08/15/23 04:13 08/15/23 03:57
I&O
08/14/23 08/15/23 08/16/23
06:59 06:59 06:59
Intake Total
Balance
Review of Systems
-
Unable to obtain full review of systems at this time due to: Language Barrier
History Source: Patient
All other systems: Reviewed and negative
[2023-08-15] MEDS: TOPROL XL 25 MG PO (07:44)
[2023-08-15] MEDS: LIDOCAINE 4% PATCH 1 PATCH TOPICAL (07:44)
[2023-08-15] MEDS: NORVASC 10 MG PO (07:44)
[2023-08-15] MEDS: PROTONIX 40 MG PO (07:44)
[2023-08-15] MEDS: PACERONE 200 MG PO (07:44)
[2023-08-15] MEDS: PLAVIX 600 MG PO (08:48)
[2023-08-15] MEDS: SODIUM BICARBONATE 1150 MEQ IV (10:04)
--- NOTE | 2023-08-15 11:53 | W.PN.NEPH.PH ---
Today's Communication / Plan
-
observe
Assessment/Plan
-
Assessment:
chronic HFpEF
Afib
CKD4
HTN
osteoporosis
s/p hip replacement
T2DM
hypokalemia
Plan:
-K
-check Mag
-holding lasix for now
-so long as Cr <= 1.8 can do cath with bicarb IVF
-follow bmp 48hrs post cath
-
-
Date of Service: August 15, 2023
CC / HPI / ROS
-
Chief Complaint:
CORWIN/CKD
History of Present Illness:
CKD/Cr stable 1.7
K low 3.3
BP stable
Review of Systems:
no CP/SOB
Labs
-
Labs:
WBC 11.4 10^3/uL (4.8-10.8) H 08/15/23 04:10
RBC 5.40 10^6/uL (4.20-5.40) 08/15/23 04:10
Hgb 15.1 g/dL (12.0-16.0) 08/15/23 04:10
Hct 43.3 % (37.0-47.0) 08/15/23 04:10
Plt Count 254 10^3/uL (130-400) 08/15/23 04:10
Sodium 134 mmol/L (135-145) L 08/15/23 04:10
Potassium 4.2 mmol/L (3.5-5.1) 08/15/23 04:10
Chloride 100 mmol/L (98-107) 08/15/23 04:10
Carbon Dioxide 25 mmol/L (22-30) 08/15/23 04:10
BUN 38 mg/dl (7-17) H 08/15/23 04:10
Creatinine 1.7 mg/dL (0.6-1.0) H 08/15/23 04:10
eGFR 29.02 08/15/23 04:10
Glucose 136 mg/dl (70-99) H 08/15/23 04:10
Calcium 9.8 mg/dl (8.4-10.2) 08/15/23 04:10
Bfe-H-Qwevtjxhwua Pept 2270 pg/ml 08/13/23 03:42
Albumin 4.0 g/dl (3.5-5.0) 08/13/23 03:42
Physical Exam
-
Vital Signs:
Vital Signs
Temp Pulse Resp BP Pulse Ox
98.4 F 74 18 131/77 96
08/15/23 07:00 08/15/23 08:00 08/15/23 07:00 08/15/23 06:42 08/15/23 08:00
Cardiovascular:: Regular rate and rhythm
Respiratory:: Bilateral: Coarse
Lung Excursion:: Normal
Abdomen:: Nontender and Soft
Bowel Sounds:: Normal
Extremity Edema:: None: Bilateral:
Melendez Catheter: No
--- NOTE | 2023-08-15 12:33 | CM ---
spoke to pt in room, she does not speak englush and her son answered questions. she is prev indep, lives with her daughter in a 2 story home with 3 steps to enter. she uses a rollator. they deny an dc planning needs. plan is for dc to home with darlin
when medically stable.
--- NOTE | 2023-08-15 16:16 | W.DS.TRANS ---
DC Summary - [facility]ler
-
Discharge Instructions:
Sleep Apnea Risk Low
Discharge Diagnosis/Procedures Chest pain, chronic kidney disease
Diet Low Fat,Low Cholesterol
Activity As tolerated
Driving Restrictions As prior to admission
Bathing Restrictions None
Blood Work BMP in 48 hours with your primary care doctor
Instructions:
Stand-Alone Forms:
Changes to Home Medications: No
Discharge Medications:
DC Medications w/original date entered in [facility]
omeprazole 40 mg capsule,delayed release 40 mg PO DAILY Gastrointestinal Issue 12/12/18
multivitamin 1 tab PO DAILY Supplement 07/21/23
amiodarone 200 mg tablet (Pacerone) 200 mg PO DAILY #30 tabs 07/29/23
acetaminophen 500 mg tablet (Tylenol Extra Strength) 500 mg PO TIDPRN PRN mild pain 07/30/23
diclofenac sodium 1 applic topical BIDPRN PRN arthritis 07/30/23
ketotifen fumarate 0.025 % (0.035 %) eye drops 1 drp BOTH EYES DAILYPRN PRN itchy eyes 07/30/23
amlodipine 10 mg tablet 10 mg PO DAILY #30 tabs 08/05/23
apixaban 2.5 mg tablet (Eliquis) 2.5 mg PO BID #60 tabs 08/05/23
furosemide 20 mg tablet (Lasix) 20 mg PO DAILY Fluid Retention/Swelling #30 tabs 08/05/23
metoprolol succinate 25 mg tablet,extended release 24 hr 25 mg PO DAILY Blood Pressure #30 tabs 08/05/23
nitroglycerin 0.4 mg sublingual tablet 0.4 mg sublingual [id number] PRN chest pain #30 tabs 08/05/23
simvastatin 20 mg tablet 20 mg PO QPM High Cholesterol #30 tabs 08/05/23
Home Medication Changes
Pending Results: No
--- NOTE | 2023-08-15 16:22 | ITS.CL.CATH ---
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
Cardiac Catheterization
Procedure Report:
LEFT HEART CATHETERIZATION
Date of Procedure: August 15, 2023
Referring: Dr. Niranjan Mosquera
PROCEDURES:
1. Coronary angiography
INDICATION: This is an 88-year-old female with a past medical history notable for atrial fibrillation and chest pressure. She has several hospitalizations for evaluation of the symptoms and is now referred for coronary angiography
ACCESS: Right radial artery, 6 Faro[place] sheath
HEMODYNAMICS : (mmHg)
AO (s/d) : 127/75
LV (s/d) : 123/17
LVEDP : 22
CORONARY FINDINGS
DOMINANCE: Right
LEFT MAIN: Normal
LEFT ANTERIOR DESCENDING: The LAD arises normally from the left main and runs in the anterior interventricular groove. The mid LAD beyond the diagonal branch tapers to a smaller caliber vessel as it approaches the apex. The only sizable diagonal
branch arises from the mid LAD and supplies a vascular territory equivalent of the LAD it is a medium caliber vessel with only minor irregularities but no focal obstructive stenosis
CIRCUMFLEX: The circumflex is a medium caliber nondominant vessel. OM1 arises proximally and is a very small caliber vessel. The mid circumflex has a 40% stenosis and OM 2 is a medium caliber bifurcating vessel
RIGHT CORONARY ARTERY: The right coronary artery is a large-caliber dominant vessel that has minor irregularities throughout its course. The PDA is a medium caliber vessel with a 30% ostial stenosis. The posterolateral branch gives rise to a large
atrial branch.
VENTRICULOGRAPHY: Not done
RADIATION SUMMARY: Fluoro Time (min): 5.2, Dose (mGy): 475, DAP (Gy.cm2) : 37.9
Closure Device: TR band
CONCLUSIONS
1. Mild nonobstructive coronary artery disease as described above
RECOMMENDATIONS
1. Continue medical therapy
Copy to: Dr. Mimi Jolly
[2023-08-15] MEDS: LIPITOR 10 MG PO (17:13)
--- NOTE | 2023-08-15 17:23 | PTCARENOTE ---
Pt received this am alert and oriented. Pt's son at the bedside for translation. Pt's son states she has no chest pain or sob. Pt returned from cardiac cath at 11:50 with radial band intact. Site wnl. Bicarb infusing as ordered.
--- NOTE | 2023-08-15 19:01 | PTCARENOTE ---
Right rad site dressing dry and intact with mild ecchymosis. Pt discharged to home with her son. Discharge instructions given and reviewed with pt's son who then translated all instructions. Pt and son verbalize understanding.
--- NOTE | 2023-08-29 08:59 | OID.L.PAT ---
Pulmonary Nodule Pat Letter
- -
08/29/23
AGUEDA KEATING
[address]
[place], [place]
Deidre ROMEO,
A pulmonary nodule was seen on an imaging study done by [facility]. This was reviewed by the [facility] Pulmonary Nodule Advisory Board and the following recommendation was made:
Recommendation: Follow up Chest CT - now
If you have any questions, please do not hesitate to contact your primary care physician. If you are in need of a Physician, you can go to [email or web address] and click on 'Find a Provider'. Type 'Family Medicine' in the search.
Oncology Nurse Navigator
[place] [facility]
[phone]
Certified Mail Return Receipt
== END 2023-08-15 19:08 | disposition home or self-care (01) | DRG 286 ==
LOC: IVU 08:56
PROVIDERS: Internal Medicine Interventional Cardiology; Physician Assistant Medical; ADMITTING PHYSICIAN Internal Medicine; ATTENDING PHYSICIAN Hospitalist; CONSULT PHYSICIAN Internal Medicine Cardiovascular Disease; CONSULT PHYSICIAN Specialist; EMERGENCY PHYSICIAN Emergency Medicine
PROC: B2151ZZ Fluoroscopy of Left Heart using Low Osmolar Contrast (ICD-10-PCS; 2023-08-15)
PROC: 4A023N7 Measurement of Cardiac Sampling and Pressure, Left Heart, Percutaneous Approach (ICD-10-PCS; 2023-08-15)
PROC: B2111ZZ Fluoroscopy of Multiple Coronary Arteries using Low Osmolar Contrast (ICD-10-PCS; 2023-08-15)
DX: I25.119 Atherosclerotic heart disease of native coronary artery with unspecified angina pectoris (principal); I50.33 Acute on chronic diastolic (congestive) heart failure; N18.4 Chronic kidney disease, stage 4 (severe); I13.0 Hypertensive heart and chronic kidney disease with heart failure and stage 1 through stage 4 chronic kidney disease, or unspecified chronic kidney disease; I48.4 Atypical atrial flutter; N17.9 Acute kidney failure, unspecified; R07.9 Chest pain, unspecified; R42 Dizziness and giddiness; I48.0 Paroxysmal atrial fibrillation; E11.22 Type 2 diabetes mellitus with diabetic chronic kidney disease; E78.00 Pure hypercholesterolemia, unspecified; M81.0 Age-related osteoporosis without current pathological fracture; E87.5 Hyperkalemia; E87.6 Hypokalemia; R91.1 Solitary pulmonary nodule; K21.9 Gastro-esophageal reflux disease without esophagitis; Z88.6 Allergy status to analgesic agent; Z96.641 Presence of right artificial hip joint; Z79.01 Long term (current) use of anticoagulants
CPT/HCPCS: 71046; 80048; 80053; 83735; 83880; 84484; 85025; 85027; 85730; 93005; 93458; 94760; 96365; 96366; 99285; C1769; C1894; Q9967